=== PATIENT | male | born 1990 | race Caucasian/White ===

== ENCOUNTER 2025-01-26 02:39 | Emergency (ER) | payer SELFPAY ==
[~2025-01-26] VITALS: Ht 175.3 cm; Wt 76.0 kg
[2025-01-26 02:44] VITALS: BP 116/75; PULSE 84; RESP 18; TEMP 97.4; O2SAT 96
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
== END 2025-01-26 02:56 ==
LOC: ER 02:40
DX: Z02.89 Encounter for other administrative examinations (principal); V89.2XXA Person injured in unspecified motor-vehicle accident, traffic, initial encounter; Y93.89 Activity, other specified; Y92.410 Unspecified street and highway as the place of occurrence of the external cause; Y99.8 Other external cause status
CPT/HCPCS: 99283